=== PATIENT | female | born 1985 | race Native Hawaiian/Other Pacific Islander ===

== ENCOUNTER 2017-06-02 13:20 | Emergency (ER) | payer OTHER ==
[2017-06-02 13:43] VITALS: BP 112/75
--- NOTE | 2017-06-02 13:57 | ED Physician Documentation ---
PD HPI HEENT - Stated complaint Stated Complaint: COUGH,LT EAR SWELLING - Chief complaint Chief Complaint: Heent - History obtained from History obtained from: Patient - History of Present Illness Timing - onset: How many weeks ago (1) Timing - duration: Days Timing - details: Gradual onset, Still present Location: Right ear, Nose, Throat Improves: No: Medication Associated symptoms: Fever, Congestion, Swollen nodes, Cough Similar symptoms before: Has not had sx before Recently seen: Not recently seen Review of Systems Constitutional: reports: Fever, Myalgias Ears: reports: Ear pain. 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: Other - Present Medications Home Medications: Ambulatory Orders Medication Instructions Recorded Confirmed Ibuprofen 1 mg PO DAILY 07/15/15 07/15/15 Benzonatate [Tessalon] 100 mg PO TID PRN #25 capsule 06/02/17 Dexamethasone [Decadron] 4 mg PO DAILY #5 tablet 06/02/17 - Allergies Allergies/Adverse Reactions: Allergies Allergy/AdvReac Type Severity Reaction Status Date / Time No Known Drug Allergies Allergy Verified 07/15/15 22:20 - Social History Does the pt smoke?: Yes Smoking Status: Current some day smoker Does the pt drink ETOH?: Yes ETOH Use: Wine, Liquor Does the pt have substance abuse?: No - Immunizations Immunizations are current?: Yes - POLST Patient has POLST: No PD ED PE NORMAL - Vitals Vital signs reviewed: Yes - General General: Alert and oriented X 3, No acute distress, Well developed/nourished - HEENT HEENT: Ears normal, Moist mucous membranes, Pharynx benign - Neck Neck: Supple, no meningeal sign, No adenopathy - Cardiac Cardiac: RRR, No murmur - Respiratory Respiratory: Clear bilaterally - Derm Derm: Normal color, Warm and dry - Neuro Neuro: Alert and oriented X 3, No motor deficit, Normal speech Results - Vitals Vitals: Oxygen O2 Source Room air PD MEDICAL DECISION MAKING - ED course Complexity details: considered differential, d/w patient Departure - Departure Disposition: 01 Home, Self Care Clinical Impression: Pharyngitis with viral syndrome Upper respiratory infection Qualifiers: URI type: unspecified URI Qualified Code(s): J06.9 - Acute upper respiratory infection, unspecified Condition: Stable Record reviewed to determine appropriate education?: Yes Instructions: ED Pharyngitis Viral Prescriptions: Benzonatate [Tessalon] 100 mg PO TID PRN #25 capsule PRN Reason: Cough Dexamethasone [Decadron] 4 mg PO DAILY #5 tablet Comments: Drink lots of fluids. Your throat and your do not look like a bacterial infection. Presume some inflammation from the viral illness. The Decadron steroid anti-inflammatory typically helps quite a bit for that. Tylenol if needed for fevers or pains. Tessalon if needed for cough. Recheck if not improving in the next day or two. Discharge Date/Time: 06/02/17 14:35
[2017-06-02] MEDS ORDERED: DEXAMETHASONE 10 MG/ML VIAL PO STA (14:22)
[2017-06-02] MEDS ORDERED: BENZONATATE 100 MG CAPSULE PO STA (14:22)
[2017-06-02] MEDS ORDERED: BENZONATATE 100 MG CAPSULE PO ONE (14:30)
[2017-06-02] MEDS ORDERED: DEXAMETHASONE 10 MG/ML VIAL ONE (14:31)
== END 2017-06-02 14:35 | disposition home or self-care (01) ==
LOC: ED 13:20
DX: J02.8 Acute pharyngitis due to other specified organisms (principal); B97.89 Other viral agents as the cause of diseases classified elsewhere; F17.200 Nicotine dependence, unspecified, uncomplicated
CPT/HCPCS: 99283; A9270